=== PATIENT | male | born 1945 | race Caucasian/White ===

== ENCOUNTER 2018-04-14 05:52 | Inpatient (IN) ==
[2018-04-14] MEDS ORDERED: Chlorhexidine Gluconate 2% 1 Pack (2 Cloths) TOPICAL ONE (06:23)
[2018-04-14] MEDS ORDERED: Metoprolol Tartrate 25 MG Tablet PO ONE (06:23)
[2018-04-14] MEDS ORDERED: Bupivacaine PF 0.5% Inj 10 ML Vial ONE (06:43)
[2018-04-14] MEDS ORDERED: Heparin 10,000 UNITS/10 ML Vial (for IV use) ONE (06:43)
[2018-04-14] MEDS ORDERED: ceFAZolin 1 GM Premix Inj 2 GM/100 ML PIGGYBACK IV.SIG ONE (06:43)
[2018-04-14] MEDS ORDERED: Protamine Sulfate Inj 50 MG/5 ML Vial ONE ×2 (06:43→09:38)
[2018-04-14] MEDS ORDERED: Thrombin Topical 20,000 UNIT Spray Kit TOPICAL ONE (06:44)
[2018-04-14] MEDS ORDERED: Heparin/NS PF Inj 500 ML ONE (06:44)
[2018-04-14] MEDS ORDERED: Sodium Chlor 0.9% Inj 500 ML IV.SIG SCH (07:00)
--- NOTE | 2018-04-14 07:45 | P.PNVS ---
- Pre-operative Note Planned Procedure: RIGHT CEA Interval History: Pt has been feeling well, no changes in his health that would preclude OR. Labs: Hct 44 plt 218 cr 0.8 INR 1.1 Blood: T&S Imaging: CTA reviewed Orders: NPO Ancef 2g IV OCTOR Post-operative Destination: [facility] Operative site marked: Yes Consent: Informed consent has been obtained from Gonzalo Huerta JR. I have explained the procedure in detail and discussed the risks, benefits, and potential complications. All questions have been answered. Patient Contact Information: [phone]
--- NOTE | 2018-04-14 10:32 | P.OP ---
- Preoperative Diagnosis (1) Carotid stenosis - Postoperative Diagnosis (1) Carotid stenosis Date of procedure: 04/14/18 Procedure: RIGHT carotid endartectomy Implants: bovine pericardial patch Anesthesia: GETA Surgeon: Wu Jiang MD Client Experience Manager: Woody Molina Estimated blood loss (mL): 75 IV fluids (mL): 1,700 Pathology: none sent Operation and Findings: calcific boulder-like plaque at proximal ICA neurologically intact after extubation
[2018-04-14] MEDS ORDERED: Bisacodyl 10 MG Supp RECTAL PRN (10:34)
[2018-04-14] MEDS ORDERED: LORazepam 0.5 MG Tablet PO PRN (10:37)
[2018-04-14] MEDS ORDERED: fentaNYL Citrate Inj 100 MCG/2 ML Ampul ONE ×2 (10:53)
--- NOTE | 2018-04-14 13:31 | MB ---
cc: Giuseppe Sierra MD DATE: 04/14/2018 HISTORY OF PRESENT ILLNESS: The patient is a 72-year-old male with past medical history of hypertension, prostate cancer, anxiety disorder, carotid stenosis, who underwent right carotid endarterectomy by Dr. Jiang earlier today. The patient received 1700 mL of crystalloid in the ED and 75 mL of estimated blood loss. Critical care medicine was consulted for critical care management. The patient was neurologically intact after extubation. When seen in ICU, he is on 2 liters oxygen with saturation of 97%. He denies any chest pain, shortness of breath, or GI symptoms. The patient is awake and alert. He denies any orthopnea, PND, or edema of lower extremities. PAST MEDICAL HISTORY: Significant for anxiety disorder, prostate cancer, hypertension. PAST SURGICAL HISTORY: Hip replacement, previous vasectomy. ALLERGIES: ACCUPRIL, SIDE EFFECTS ARE HIVES AND SWELLING OF THE FACE. SOCIAL HISTORY: Social drinker and smoker. FAMILY HISTORY: Noncontributing to present illness. MEDICATIONS AT HOME: Include: 1. Simvastatin. 2. Amlodipine. 3. Lorazepam p.r.n. 4. Chlorthalidone. REVIEW OF SYSTEMS: As per HPI, rest of review of systems is unremarkable. PHYSICAL EXAMINATION: GENERAL: A 72-year-old male lying in bed, in no acute respiratory distress. VITAL SIGNS: Temperature 98.5, pulse 82, respiratory rate of 14, blood pressure 135/81, saturation 97% on 2 liters oxygen. HEENT: Atraumatic, normocephalic. Pupils are equal, round, reactive to light and accommodation. Extraocular muscles intact. Conjunctivae pink, anicteric sclerae. Oral mucosa within normal. NECK: Supple. No JVD, adenopathy, or thyromegaly. Trachea in the midline. CARDIOVASCULAR: Regular rate and rhythm. Normal S1, S2. No murmurs, rubs, or gallops noted. PULMONARY: Bilateral equal air entry. No rales or wheezing. ABDOMEN: Soft, nontender, nondistended, positive bowel sounds. EXTREMITIES: No cyanosis, clubbing, or edema. NEUROLOGIC: No focal sensory deficit. LABORATORY DATA: None available. IMPRESSION: 1. Respiratory insufficiency. 2. Right carotid stenosis, status post carotid endarterectomy. 3. Hypertension. 4. History of prostate cancer. 5. Hyperlipidemia. RECOMMENDATIONS: 1. Monitor neuro status closely and avoid any sedatives. 2. Continue with oxygen and maintain saturations above 92%. 3. Bronchodilators on a p.r.n. basis. 4. Monitor heart rate and blood pressure closely and maintain MAP greater than 65 mmHg. 5. Continue with aspirin 81 mg daily, Norvasc 5 mg daily, as ordered. 6. Dilaudid 2 mg every 4 hours p.r.n. for pain. 7. Monitor renal function and electrolyte replacement as needed. 8. The patient is on a p.o. cardiac diet. No indication for gastrointestinal prophylaxis. 9. Monitor for signs of infection, which include fever and WBC. 10. Continue with chlorthalidone 25 mg daily. 11. Sliding scale insulin if needed for glycemic control. 12. Deep venous thrombosis prophylaxis. The patient was placed on Lovenox 40 mg subcutaneous daily, start tomorrow. 13. We will obtain basic labs now, which include CBC and CMP. 14. Further recommendations will be based on hospital course. 15. Plan discussed with the patient's family and nursing staff. MD INDRA Kaminski/sudhir , 12:46 PM , 12:56 PM
[2018-04-14 14:27] LABS: Baso % (Auto) 0.2 % (0.0-2.0); Eos % (Auto) 0.1 % (0.0-4.0); Hematocrit 43.2 % (39.0-51.0); Hemoglobin 14.5 gm/dL (13.0-17.0); Lymph # (Auto) 0.7 th/mm3 (1.0-4.8); Lymph % (Auto) 6.6 % (9.0-44.0); Mean Corpuscular HGB Conc 33.6 % (32.0-36.0); Mean Corpuscular Hemoglobin 27.8 pg (27.0-34.0); Mean Corpuscular Volume 82.8 fL (80.0-100.0); Mean Platelet Volume 7.6 fL (7.0-11.0); Mono # (Auto) 0.1 th/mm3 (0.0-0.9); Mono % (Auto) 1.1 % (0.0-8.0); Neut # (Auto) 10.4 th/mm3 (1.8-7.7); Platelet Count 231 th/mm3 (150-450); Red Blood Count 5.22 mil/mm3 (4.50-5.90); Red Cell Distribution Width 15.4 % (11.6-17.2); White Blood Count 11.3 th/mm3 (4.0-11.0)
[2018-04-14 14:43] LABS: Albumin 4.1 g/dL (3.4-5.0); Anion Gap 8 meq/L (5-15); Aspartate Aminotransferase 26 U/L (15-37); Blood Urea Nitrogen 12 mg/dL (7-18); Calcium 8.6 mg/dL (8.5-10.1); Carbon Dioxide 28.9 meq/L (21.0-32.0); Chloride 103 meq/L (98-107); Glomerular Filtration Rate Greater Than 89 mL/min (>89); Glucose,Random 165 mg/dL (74-106); Potassium 3.2 meq/L (3.5-5.1); Sodium 140 meq/L (136-145)
--- NOTE | 2018-04-14 14:44 | MP ---
cc: Wu Jiang MD DATE OF OPERATION: 04/14/2018 PREOPERATIVE DIAGNOSIS: Asymptomatic right carotid stenosis. POSTOPERATIVE DIAGNOSIS: Asymptomatic right carotid stenosis. PROCEDURE PERFORMED: Right carotid endarterectomy. ATTENDING SURGEON: Wu Jiang MD. DIRECTOR DATA MANAGEMENT SURGEON: Woody Molina. INDICATIONS: Mr. Huerta is a 72-year-old gentleman with a high-grade right asymptomatic carotid stenosis. After discussion was had with the patient about the risks and benefits, he was offered carotid endarterectomy. DESCRIPTION OF PROCEDURE: Informed consent was obtained. The patient was taken to the operating room and laid supine on the operative table. Appropriate timeout was taken to ensure the patient's identity, operative site, and planned procedure. The administration of 2 grams of Ancef was initiated prior to skin incision and will be discontinued after single preoperative dose. Everyone in the room agreed with the timeout and we proceeded. The right neck was prepped and draped. An incision was made along the anterior aspect of the sternocleidomastoid. This was carried down through subcutaneous tissue with electrocautery. The platysma was divided. The sternocleidomastoid was retracted posteriorly. A plexus of facial veins were divided with 3-0 silks. The common carotid artery was dissected circumferentially and encircled with vessel loop. The external carotid, superior thyroid, and internal carotid artery were all dissected free. The external carotid artery appeared to course superficial and overlying the top of the internal carotid artery, so superficial mobilization was required. The patient was then systemically heparinized and the ACT was confirmed to be greater than 250. Distal then proximal control of the internal common carotid arteries were obtained with clamps. The external carotid artery control was obtained with a vessel loop. A longitudinal arteriotomy was made with an 11 blade, extended with [place] scissors. A dense calcific plaque was encountered and endarterectomized without difficulty. Several 6-0 tacking sutures were made at the distal endpoint. The artery back bled quite nicely. There were no EEG changes during cross clamping of the carotid artery. After successful endarterectomy, the artery was patch repaired with a bovine pericardial patch. The clamps were released in sequence and there was hemostasis achieved with several repair sutures. The wound was infiltrated with Marcaine. The heparin reversed with protamine. The wound was made hemostatic and closed with 2-0 Polysorb, 3-0 Polysorb, and 4-0 Monocryl. The sponge and needle counts were correct at the end of the case. At the conclusion of the case, the patient was awoken, extubated, and transported to ICU neurologically intact. MD VANNESA Odonnell/sudhir/kd , 12:01 PM , 12:09 PM
[2018-04-14 14:45] LABS: Alanine Aminotransferase 38 U/L (12-78); Alkaline Phosphatase 76 U/L (45-117); Total Protein 7.5 g/dL (6.4-8.2)
[2018-04-14] MEDS: Senna/Docusate Sodium 8.6/50 MG Tablet PO SCH (22:51)
[2018-04-15 05:43] LABS: Hematocrit 41.3 % (39.0-51.0); Hemoglobin 14.1 gm/dL (13.0-17.0); Mean Corpuscular HGB Conc 34.1 % (32.0-36.0); Mean Platelet Volume 7.4 fL (7.0-11.0); Platelet Count 232 th/mm3 (150-450); Red Blood Count 5.03 mil/mm3 (4.50-5.90); Red Cell Distribution Width 15.2 % (11.6-17.2); White Blood Count 13.3 th/mm3 (4.0-11.0)
[2018-04-15 06:06] LABS: Anion Gap 9 meq/L (5-15); Blood Urea Nitrogen 9 mg/dL (7-18); Calcium 8.8 mg/dL (8.5-10.1); Carbon Dioxide 26.9 meq/L (21.0-32.0); Chloride 102 meq/L (98-107); Glomerular Filtration Rate Greater Than 89 mL/min (>89); Glucose,Random 143 mg/dL (74-106); Potassium 3.1 meq/L (3.5-5.1); Sodium 138 meq/L (136-145)
[2018-04-15 07:44] VITALS: BP 147/84; PULSE 78; RESP 16; TEMP 98.7; O2SAT 96
--- NOTE | 2018-04-15 08:24 | P.PNVS ---
Subjective Post Op Day #: 1 Procedure: R CEA Subjective/Hospital Course: c/o throat sore but no distinct neck pain. voiding well no RICKS or other neuro problems Objective Vital Signs / I&O: Vital Signs 04/14/18 10:45 04/14/18 11:00 04/14/18 11:02 Temperature 97.7 F 98.5 F Pulse Rate 81 82 Respiratory Rate 14 14 Blood Pressure 147/90 H 135/81 Pulse Oximetry 98 98 97 04/14/18 13:43 04/14/18 15:00 04/14/18 20:00 Temperature 97.9 F 98.4 F Pulse Rate 86 90 Respiratory Rate 15 20 Blood Pressure 121/75 151/85 H Pulse Oximetry 97 97 94 L 04/14/18 21:00 04/15/18 00:00 04/15/18 04:00 Temperature 98.0 F Pulse Rate 81 71 Respiratory Rate 20 18 Blood Pressure 132/77 144/82 H Pulse Oximetry 96 94 L 93 L 04/15/18 07:42 Temperature 98.7 F Pulse Rate 78 Respiratory Rate 16 Blood Pressure 147/84 H Pulse Oximetry 96 Intake & Output 04/14/18 04/15/18 04/15/18 18:59 06:59 18:59 Intake Total 2800 / 2800 680 / 680 Output Total 275 / 275 2024 Balance 2525 / 2525 -1345 / -1345 Weight 88.5 kg Intake: IV 600 / 600 LR 1000 mL Inj 1,000 ML @ 30 500 / 500 mls/hr IV.SIG .Q24H [facility] Rx#: [id number] Ancef 1 GM Premix Inj 2 gm In 100 / 100 100 ml @ 0 mls/hr IV.SIG .STK- [facility] Rx#:[id number] Oral 500 / 500 680 / 680 Anesthesia Amount 1700 / 1700 Output: Urine 200 / 200 2024 Estimated Blood Loss 75 / 75 Other: # Voids 1 # Bowel Movements 0 Exam: alert, no distress neuro intact except mildly asymmetric smile neck slightly swollen ROSE with 5/5 strength Laboratory Results - last 24 hr 04/14/18 04/14/18 04/15/18 13:58 13:58 05:15 WBC 11.3 H 13.3 H RBC 5.22 5.03 Hgb 14.5 14.1 Hct 43.2 41.3 MCV 82.8 82.0 MCH 27.8 28.0 MCHC 33.6 34.1 RDW 15.4 15.2 Plt Count 231 232 MPV 7.6 7.4 Neut % (Auto) 92.0 H Lymph % (Auto) 6.6 L Harnett % (Auto) 1.1 Eos % (Auto) 0.1 Baso % (Auto) 0.2 Neut # (Auto) 10.4 H Lymph # (Auto) 0.7 L Harnett # (Auto) 0.1 Eos # (Auto) 0.0 Baso # (Auto) 0.0 WBC Differential . Differential Comment Auto diff final Sodium 140 Potassium 3.2 L Chloride 103 Carbon Dioxide 28.9 Anion Gap 8 BUN 12 Creatinine 0.79 Estimated GFR Greater than 89 Random Glucose 165 H Calcium 8.6 Total Bilirubin 1.2 H AST 26 ALT 38 Alkaline Phosphatase 76 Total Protein 7.5 Albumin 4.1 04/15/18 05:15 WBC RBC Hgb Hct MCV MCH MCHC RDW Plt Count MPV Neut % (Auto) Lymph % (Auto) Harnett % (Auto) Eos % (Auto) Baso % (Auto) Neut # (Auto) Lymph # (Auto) Harnett # (Auto) Eos # (Auto) Baso # (Auto) WBC Differential Differential Comment Sodium 138 Potassium 3.1 L Chloride 102 Carbon Dioxide 26.9 Anion Gap 9 BUN 9 Creatinine 0.72 Estimated GFR Greater than 89 Random Glucose 143 H Calcium 8.8 Total Bilirubin AST ALT Alkaline Phosphatase Total Protein Albumin Assessment and Plan - Assessment (1) Carotid stenosis Code(s): I65.29 - Occlusion and stenosis of unspecified carotid artery Status : Acute - Plan POD#1 s/p R CEA, neuro intact and looks great 1. D/C A-line 2. Replete K 3. OOB ad piyush 4. D/C later this morning Discharge Planning: later this morning; f/u 1m with carotid duplex
[2018-04-15] MEDS ORDERED: amLODIPine 5 MG Tablet PO SCH (09:00)
[2018-04-15] MEDS ORDERED: Enoxaparin Inj 40 MG/0.4 ML Syringe SQ SCH (09:00)
[2018-04-15] MEDS ORDERED: Chlorthalidone 50 MG Tablet PO SCH (09:00)
[2018-04-15] MEDS: Senna/Docusate Sodium 8.6/50 MG Tablet PO SCH (09:03)
--- NOTE | 2018-04-15 09:44 | P.DS ---
<Christine Gudino - Last Filed: 04/15/18 09:30> Discharge Summary - Admission Date 04/14/18 05:52 - Admission Diagnosis (1) Carotid stenosis - Discharge Date 04/15/18 - Discharge Diagnosis (1) Status post carotid endarterectomy Status: Acute (2) Carotid stenosis Status: Acute - Summary Brief History from admission: 72/M with a PMH of Asymptomaticcarotid artery stenosis. He initially had a "lump" in his neck associated with a sore throat that likely turned out to be an enlarged lymph node as it resolved with his throat symptoms. However a NC CT showed significant carotid calcification and then a subsequent CTA of his neck showed high grade R ICA stenosis. He has no stroke, TIA, or amaurosis symptoms. He takes a statin and does not smoke. Procedure: R CEA Significant Findings: Incision intact with mild soft tissue swelling Pt denied headache CN 2-12 intact Mild right sided lower lip paresthesia w/ asymmetric smile Throat soreness - able to swallow and eat w/o difficulty Abnormal Lab Results 04/14/18 04/14/18 04/15/18 13:58 13:58 05:15 WBC 11.3 H 13.3 H RBC 5.22 5.03 Hgb 14.5 14.1 Hct 43.2 41.3 MCV 82.8 82.0 MCH 27.8 28.0 MCHC 33.6 34.1 RDW 15.4 15.2 Plt Count 231 232 MPV 7.6 7.4 Neut % (Auto) 92.0 H Lymph % (Auto) 6.6 L Dixon % (Auto) 1.1 Eos % (Auto) 0.1 Baso % (Auto) 0.2 Neut # (Auto) 10.4 H Lymph # (Auto) 0.7 L Dixon # (Auto) 0.1 Eos # (Auto) 0.0 Baso # (Auto) 0.0 WBC Differential . Differential Comment Auto diff final Sodium 140 Potassium 3.2 L Chloride 103 Carbon Dioxide 28.9 Anion Gap 8 BUN 12 Creatinine 0.79 Estimated GFR Greater than 89 Random Glucose 165 H Calcium 8.6 Total Bilirubin 1.2 H AST 26 ALT 38 Alkaline Phosphatase 76 Total Protein 7.5 Albumin 4.1 04/15/18 05:15 WBC RBC Hgb Hct MCV MCH MCHC RDW Plt Count MPV Neut % (Auto) Lymph % (Auto) Dixon % (Auto) Eos % (Auto) Baso % (Auto) Neut # (Auto) Lymph # (Auto) Dixon # (Auto) Eos # (Auto) Baso # (Auto) WBC Differential Differential Comment Sodium 138 Potassium 3.1 L Chloride 102 Carbon Dioxide 26.9 Anion Gap 9 BUN 9 Creatinine 0.72 Estimated GFR Greater than 89 Random Glucose 143 H Calcium 8.8 Total Bilirubin AST ALT Alkaline Phosphatase Total Protein Albumin Hospital Course: 72/M with a PMH of Asymptomaticcarotid artery stenosis. CTA of his neck showed high grade R ICA stenosis. No recent hx of stroke, TIA, or amaurosis symptoms. Pt s/p elective R Caroid Endarterectomy POD 1 doing well, w/o any neurological deficits No complaints of headache Pt w/ expected mild incisional pain with paresthesia Pt w/ asymmetrical smile Pt clear for d/c with follow up in 4W w/ a surveillance carotid duplex D/c instructions reviewed E- [place] reviewed - Pt Rx 3D pain medication for out pt pain management - Discharge Instructions Any questions or concerns: Call [facility] at [facility] [phone] <Wu Jiang - Last Filed: 04/15/18 10:00> Discharge Summary - Admission Date 04/14/18 05:52 - Admission Diagnosis (1) Carotid stenosis - Summary Brief History from admission: He also takes an ASA daily which was started several weeks ago in clinic. Significant Findings: Abnormal Lab Results 04/14/18 04/14/18 04/15/18 13:58 13:58 05:15 WBC 11.3 H 13.3 H RBC 5.22 5.03 Hgb 14.5 14.1 Hct 43.2 41.3 MCV 82.8 82.0 MCH 27.8 28.0 MCHC 33.6 34.1 RDW 15.4 15.2 Plt Count 231 232 MPV 7.6 7.4 Neut % (Auto) 92.0 H Lymph % (Auto) 6.6 L Dixon % (Auto) 1.1 Eos % (Auto) 0.1 Baso % (Auto) 0.2 Neut # (Auto) 10.4 H Lymph # (Auto) 0.7 L Dixon # (Auto) 0.1 Eos # (Auto) 0.0 Baso # (Auto) 0.0 WBC Differential . Differential Comment Auto diff final Sodium 140 Potassium 3.2 L Chloride 103 Carbon Dioxide 28.9 Anion Gap 8 BUN 12 Creatinine 0.79 Estimated GFR Greater than 89 Random Glucose 165 H Calcium 8.6 Total Bilirubin 1.2 H AST 26 ALT 38 Alkaline Phosphatase 76 Total Protein 7.5 Albumin 4.1 04/15/18 05:15 WBC RBC Hgb Hct MCV MCH MCHC RDW Plt Count MPV Neut % (Auto) Lymph % (Auto) Dixon % (Auto) Eos % (Auto) Baso % (Auto) Neut # (Auto) Lymph # (Auto) Dixon # (Auto) Eos # (Auto) Baso # (Auto) WBC Differential Differential Comment Sodium 138 Potassium 3.1 L Chloride 102 Carbon Dioxide 26.9 Anion Gap 9 BUN 9 Creatinine 0.72 Estimated GFR Greater than 89 Random Glucose 143 H Calcium 8.8 Total Bilirubin AST ALT Alkaline Phosphatase Total Protein Albumin - Discharge Instructions Any questions or concerns: Call [facility] at [facility] [phone] Discharge Plan - Discharge Order Discharge Orders: Discharge Order (Routine); Ordered 04/15/18 Ordered By: Christine Gudino - Physicians Team Primary Care Provider: Yan Sellers Attending Provider: Wu Jiang Other Providers: Giuseppe Sierra MD - Rxs /Orders / Referrals /Forms Prescriptions: New aspirin 81 mg Tablet,Chewable 81 mg PO DAILY RF: 0 oxycodone-acetaminophen [Percocet] 5-325 mg Tablet 1 tab PO Q4-6H PRN (Reason: Pain ) Qty: 20 RF: 0 Continue amlodipine 5 mg Tablet 5 mg PO DAILY chlorthalidone 25 mg Tablet 25 mg PO DAILY lorazepam 0.5 mg Tablet 0.5 mg PO DAILY PRN (Reason: Anxiety) potassium chloride [Klor-Con M20] 20 mEq Tablet,Er Particles/Crystals 20 meq PO DAILY simvastatin 80 mg Tablet 80 mg PO QPM Referrals: Yan Sellers MD [Primary Care Provider] - See Instructions Wu Jiang MD [Physician] - See Instructions (Your Post Op follow up w/ a carotid duplex is scheduled on: Carotid Duplex Exam: 05/13/18 at 1:00 Post op Follow up: 05/14/18 at 11:00) - Discharge Instructions Patient Printed Instructions: Carotid Endarterectomy (DC), Carotid Artery Disease (GEN) - Post Discharge Care Plan Care Plan Goals: Discharge Care Plan Goals After Vascular Surgery Contact: Please call [phone] if you have any problems or have questions regarding your hospitalization. Directions to Meet Your Goals: 1. Diet: * You may resume a regular diet as you were eating at home before your admission. 2. Activity: * Increase your activity level gradually. * Keep surgical extremities elevated when at rest. This will help limit the swelling, bruising and discomfort normally present after surgery. * Walking is a good form of light exercise. Go for a walk at least 3 times per day. * No heavy lifting (lifting over 10 pounds) for at least 4 weeks from surgery. * Check with your surgeon to ensure when you are cleared for heavy lifting and full-intensity exercising. * Your strength will gradually improve. * No driving or operating motorized vehicles while on prescription pain medications. * No swimming until wounds fully healed. * Return to work when cleared by MD/PA/HOME HEALTH SPECIALIST. 3. Bathing: Shower daily. * Gently let soap and water run over your incision and pat dry. Do not scrub the incision/wound. * Don't soak in a bath or submerge your incision in water until your incision is healed and evaluated by your physician at follow-up (usually two weeks). 4. Wound Care: INCISION SITE CARE INSTRUCTIONS: * You may leave your incision open to air. * Keep your incision clean and dry, unless showering. See above. * Moisture near the incision will cause the wound to open. * No lotions, creams, ointments, or powders on incisions until they are well- healed. * If you have glue over the incision(s), allow it to fall off naturally in 1-3 weeks * If present, melida/sutures will be removed 2-3 weeks after surgery during your follow-up clinic visit. * If present, change dressing/bandage when soaked/soiled as needed. * Observe wound daily, checking for signs and symptoms of infection including: foul odor, drainage from the incision, increased redness, increased pain at incision, or increased swelling. 5. Pain Control: Expect post-operative pain for 1-4 weeks after surgery. Your pain will improve gradually. * You may have been provided with a prescription for pain medication. Please take as directed, and be aware of side effects such as drowsiness, constipation and mild stomach discomfort. Pain pills on an empty stomach can cause nausea , so eat a small amount of food, such as crackers, when taking these pills. * Take [id number]-[id number] stool softeners (Colace or Senna) with your prescribed pain medication. * Acetaminophen (500mg every 6 hours) or Ibuprofen (400mg every 6 hours) may be used in conjunction with narcotics to relieve pain. DO NOT take more than 4 grams (4000mg) of Tylenol in one day, as this can harm your liver. DO NOT take ibuprofen IF: you have an allergy to non-steroidal anti-inflammatory medications, you are taking Coumadin, you have been told you have kidney problems, or you have a history of gastrointestinal bleeding or ulcers. DO NOT take more than 3.2 grams (3200mg) of ibuprofen in one day. * You may also find relief from using heat packs or pads or ice packs. 6. Bowel Regimen for Constipation: * People who undergo surgery are likely to develop post-operative constipation. Exposure to narcotics and changes in diet, fluid intake, and physical activity are known contributors to constipation. We recommend routine stool softeners and/ or laxatives after surgery for most patients. Start by taking one medication. You can increase as directed to relieve constipation. Stop taking these medications if you develop diarrhea. These medications are available over-the- counter and do not require a prescription: * Colace is a stool softener. We recommend starting at 100mg orally twice per day as needed for soft stools and increase to a maximum of 200mg twice daily as needed. * Senna is a laxative that works by keeping water in the intestine to help stool move along the intestinal tract. Take 1 tablet daily as needed for soft stool and increase to a maximum of 2 tablets twice daily as needed. Take Senna with two full glasses of water each time. * Miralax, Dulcolax and Milk of Magnesia are other hbcw-eso-xomjzfr laxatives that may be used as needed for post-operative constipation. * Drink 6-8 glasses of water per day. * Consume 15-30g of fiber per day: * Metamucil powder, 1-2 tablespoons 1-2 times/day OR Benefiber powder, 2 tablespoons 4 times/day. * Avoid straining. 7. Follow-Up: Do Not miss your follow-up appointment. Keep up with all your appointments and yearly check ups If you have any of the following symptoms please call [phone] immediately: Excessive swelling of the affected extremity Sudden onset of severe or unusual pain in the affected extremity Pain that gets worse or is not relieved by medication Warmth, redness, or swelling in the skin around the wound Foul drainage from incision Extensive bruising or discoloration Wound that opens up or pulls apart Fever above 101.5F or shaking chills Nausea or vomiting Severe diarrhea or severe constipation Dizziness or fainting Chest pain, shortness of breath, or increased work of breathing Weight gain >10 lbs over 3-4 days Inability to urinate for more than 6 hours Cloudy or foul smelling urine Urge to urinate more often than usual Symptoms to Report to Your Doctor: Temperature 101F or higher Pain uncontrolled by medication Drainage or foul odor from incision Extensive bruising or discoloration Chest pain Shortness of breath Nausea, vomiting or dizziness Call 911: Call 911 right away if you have: Sudden onset of chest pain that is not relieved by medications Shortness of breath
== END 2018-04-15 10:41 | disposition home or self-care (01) | DRG 39 ==
LOC: HSDI 05:52 → HCVI 10:48
PROVIDERS: ADMIT Surgery; ATTEND Surgery
CPT/HCPCS: 36415; 71020; 71046; 80048; 80053; 81001; 85025; 85027; 85610; 85730; 86850; 86900; 86901; 93005; J0131; J0690; J1644; J1650; J2720; J3010; J7120